=== PATIENT | female | born 1950 | race Caucasian/White ===

== ENCOUNTER 2018-03-18 11:36 | Emergency (ER) | payer MEDICARE, SELFPAY ==
[2018-03-18 11:58] VITALS: BP 105/56; PULSE 70; RESP 16; TEMP 37
--- NOTE | 2018-03-18 13:00 | NUR.NOTE ---
pt left before being seen by provider. states she felt that she could not wait any longer. has dogs in the car. Nursing Note:
== END 2018-03-18 12:29 ==
LOC: ER 12:23
PROVIDERS: PCP Naturopath
DX: Z53.21 Procedure and treatment not carried out due to patient leaving prior to being seen by health care provider (principal)